=== PATIENT | female | born 1960 | race Caucasian/White ===

== ENCOUNTER 2016-09-28 09:39 | Emergency (ER) | payer BC ==
--- NOTE | 2016-10-01 16:46 | ER ---
ADMIT: 09/28/2016 RM/LOC: ER [facility] MR#: [id number] [address] [id number] [address] [place] [address] Emergency Room Report SEX: F AGE: 56 : 1960 DATE: 09/28/2016 ADDENDUM: A 56-year-old white female coming in with chest wall pain. EKG was negative. Chest x-ray was negative. 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 She just lives right down the [place], and she probably must have lifted wrong. Pain is reproduced with palpation. She was instructed Tylenol and Motrin, suggest maybe she can get a lift as child may qualify for something like that and follow up with her local doctor up in [place]. CONDITION ON DISCHARGE: Good. Christiano Davidson MD/ bhargavi JOB #: [id number] CC: Christiano Davidson MD, Attending Physician UNKNOWN, Family Physician
== END 2016-09-28 11:23 | disposition home or self-care (01) ==
LOC: ER 09:39
DX: R07.89 Other chest pain (principal); Z90.49 Acquired absence of other specified parts of digestive tract; Z90.89 Acquired absence of other organs; Z88.6 Allergy status to analgesic agent; Z87.891 Personal history of nicotine dependence